=== PATIENT | female | born 1960 | race Caucasian/White ===

== ENCOUNTER → 2019-01-04 | Outpatient (CLI) | payer MEDICARE | LOC: COL.PUL 08:00 | DX: R06.02 Shortness of breath (principal) ==

== ENCOUNTER 2019-02-07 13:59 | Emergency (ER) | payer MEDICARE ==
[~2019-02-07] VITALS: Ht 170.2 cm; Wt 71.8 kg
[2019-02-07 14:03] VITALS: TEMP 98.5
[2019-02-07] MEDS ORDERED: ALDACTONE 25MG25 M1 PO (14:14)
[2019-02-07] MEDS ORDERED: 00186-0370-20 IH (14:14)
[2019-02-07] MEDS ORDERED: VENTOLIN0.09 MG IH (14:14)
[2019-02-07] MEDS ORDERED: SEROQUEL 1100 MG/TAB PO (14:14)
[2019-02-07] MEDS ORDERED: LIORESAL 1010 MG/TAB PO (14:15)
[2019-02-07] MEDS ORDERED: COREG12.5 MG PO (14:15)
[2019-02-07] MEDS ORDERED: LIPITOR20 MG PO (14:15)
[2019-02-07] MEDS ORDERED: DAZIDOX10 MG PO ×2 (14:15→15:55)
[2019-02-07] MEDS ORDERED: PRINIVIL20 MG PO (14:16)
[2019-02-07] MEDS ORDERED: CYMBALTA 60MG60 MG PO (14:16)
[2019-02-07] MEDS ORDERED: DESYREL 100MG100 MG PO (14:16)
[2019-02-07 16:00] VITALS: BP 176/102; PULSE 54
== END 2019-02-07 16:18 | disposition home or self-care (01) ==
LOC: COL.ER 13:59
DX: G89.29 Other chronic pain (principal); M54.5 Low back pain; I10 Essential (primary) hypertension; J44.9 Chronic obstructive pulmonary disease, unspecified; F17.210 Nicotine dependence, cigarettes, uncomplicated; Z79.51 Long term (current) use of inhaled steroids
CPT/HCPCS: J2270; J2360

== ENCOUNTER 2019-05-27 12:28 | Inpatient (IN) | payer MEDICARE ==
[~2019-05-27] VITALS: Ht 170.2 cm; Wt 68.3 kg
[~2019-05-27 12:28] MED LIST: 00186-0370-20 IH; ALDACTONE 25MG25 M1 PO; COREG12.5 MG PO; CYMBALTA 60MG60 MG PO; DAZIDOX10 MG PO; DESYREL 100MG100 MG PO; LIORESAL 1010 MG/TAB PO; LIPITOR20 MG PO; PRINIVIL20 MG PO; SEROQUEL 1100 MG/TAB PO; VENTOLIN0.09 MG IH
[2019-05-27] MEDS ORDERED: INCRUSE EL62.5 MCG/A IH (12:56)
[2019-05-27 13:27] LABS: BASO % 0.2 % (0.0-2.0); EOS # 0.1 (0.0-0.7); EOS % 0.9 % (0-4.0); GRAN # 6.1 (1.4-6.5); GRAN % 66.7 % (42.2-75.2); HEMOGLOBIN 13.7 g/dl (12.5-16.0); LYMPH % 21.5 % (20.0-51.0); MEAN CELL VOLUME 98 fl (80.0-100.0); MEAN CORPUSCULAR HEMOGLOBIN 34 pg (27.0-31.0); MEAN CORPUSCULAR HGB CONC 34 g/dl (33.0-37.0); MEAN PLATELET VOLUME 9.5 fl (7.4-10.4); MONO # 0.9 (0.1-0.6); MONO % 10.4 % (1.7-9.3); PLATELET COUNT 273 K/mm3 (130-400); RED BLOOD COUNT 4.08 M/mm3 (4.10-5.30); REDCELL DISTRIBUTION WIDTH-CV 11.9 % (11.5-14.5)
[2019-05-27 13:36] LABS: BILIRUBIN,TOTAL 0.6 mg/dL (0.0-1.0); CALCIUM 9.3 mg/dL (8.4-10.2); CREATININE, serum 0.94 (0.52-1.25); POTASSIUM 3.8 mmol/L (3.4-5.0); TOTAL PROTEIN 7.3 gm/dL (6.4-8.2)
[2019-05-27 13:53] LABS: TROPONIN-I 0.148 ng/mL (0.000-0.035)
[2019-05-27 18:23] VITALS: BP 144/78; PULSE 68; TEMP 97.5
--- NOTE | 2019-05-27 18:44 | NUR ---
PATIENT ORIENTED TO ROOM 351 SHE COMPLAINS OF PAIN PRN MEDICATION GIVEN
--- NOTE | 2019-05-27 19:45 | NUR ---
PATIENT RESTING IN BED WATCHING TELEVISION. SHE IS INFORMED THAT SHE IS NPO FOR THE HEART DOCTOR TO EVALUATE HER TOMORROW. SHE VERBALIZES UNDERSTANDING AND NO FURTHER QUESTIONS
[2019-05-27 20:06] VITALS: BP 115/74; PULSE 59; TEMP 97.6
--- NOTE | 2019-05-27 20:30 | NUR ---
Shift assessment complete. Pt resting in bed, awake, a&o, cooperative c cares. Pt reports continued chronic back pain rated "6/10" at this time; will given PRN pain med c HS meds per pt req. Reports SOB has improved since admit. Denies any other c/o. Tele in place. O2 per NC. INT patent. Pt denies further needs at this time. Call light in reach, will continue to monitor.
[2019-05-27 22:43] VITALS: BP 118/66; PULSE 65; TEMP 97.2
[2019-05-28 03:02] VITALS: BP 141/89; PULSE 62; TEMP 97.3
[2019-05-28 07:37] VITALS: BP 151/92; PULSE 68; TEMP 97.9
[2019-05-28 08:06] LABS: BASO % 0.2 % (0.0-2.0); GRAN # 5.2 (1.4-6.5); GRAN % 86.8 % (42.2-75.2); HEMATOCRIT 42.6 % (37.0-47.0); HEMOGLOBIN 14.6 g/dl (12.5-16.0); LYMPH # 0.6 (1.2-3.4); LYMPH % 10.2 % (20.0-51.0); MEAN CELL VOLUME 98 fl (80.0-100.0); MEAN CORPUSCULAR HEMOGLOBIN 34 pg (27.0-31.0); MEAN CORPUSCULAR HGB CONC 34 g/dl (33.0-37.0); MEAN PLATELET VOLUME 9.9 fl (7.4-10.4); MONO # 0.1 (0.1-0.6); MONO % 2.3 % (1.7-9.3); PLATELET COUNT 299 K/mm3 (130-400); RED BLOOD COUNT 4.33 M/mm3 (4.10-5.30); REDCELL DISTRIBUTION WIDTH-CV 11.8 % (11.5-14.5)
[2019-05-28 08:18] LABS: CALCIUM 9.9 mg/dL (8.4-10.2); CHOLESTEROL RISK RATIO 4.3; CREATININE, serum 0.95 (0.52-1.25)
[2019-05-28 09:19] LABS: TROPONIN-I 0.084 ng/mL (0.000-0.035)
--- NOTE | 2019-05-28 09:35 | NUR ---
DEZ met with the patient to discuss discharge plan. The patient lives in [place] with her significant other, Timur. She states that her daughter, Bia (ph#[phone]) and grandson are staying with them now. She reports independence with ADLs and has nocturnal oxygen from [facility]. The patient's PCP is Dr. Leona Jordan and she receives her medications at [facility]. She reports no difficulties obtaining her meds. The patient does not have advanced directives, but she was interested in obtaining a form for DPOA-HC. DEZ provided. She states that she would probably designate one of her three daughters. The patient plans to return home with her family upon discharge. No additional needs at this time.
[2019-05-28 12:37] VITALS: BP 145/75; PULSE 60; TEMP 97.3
--- NOTE | 2019-05-28 15:10 | NUR ---
sitting up in bed, states Dr was in and they are planning on her being discharged, she is alert and oriente, skin warm and dry, color normal, heart rate strong and regular, lungs CTA, bowel sounds present and abdoment soft, peripheral pulses present, denies needs
[2019-05-28] MEDS ORDERED: NICODERM C14 MG/PATC TD (15:32)
[2019-05-28] MEDS ORDERED: ASPIRIN E.C. 8181 MG PO (15:34)
--- NOTE | 2019-05-28 15:34 | NUR ---
cardiopulmonary notified of need for exercise oximetry
[2019-05-28] MEDS ORDERED: MEDROL 4MG DOSPA4 MG PO (15:35)
[2019-05-28] MEDS ORDERED: ZITHROMAX500 M2 PO (15:56)
[2019-05-28] MEDS ORDERED: PROCARDIA XL 3030 MG PO (15:57)
--- NOTE | 2019-05-28 15:59 | NUR ---
PT WALKED APPROX 100 FEET ON ROOM AIR. SPO2 @ REST 96% W/EXERCISE 93%
--- NOTE | 2019-05-28 16:23 | NUR ---
spoke with Dominguez Aguirre, she will review the exercises oximetry and complete discharge orders
--- NOTE | 2019-05-28 16:31 | NUR ---
INT and telemetry discontinued in anticipation of discharge, she will get up and get dressed now
--- NOTE | 2019-05-28 16:55 | NUR ---
discharge instructions given to patient and her daughter and verbalizes understanding, discharged ambulatory
== END 2019-05-28 16:55 | disposition home or self-care (01) | DRG 189 ==
LOC: COL.ER 12:28 → MEDICAL 15:09
PROVIDERS: Emergency Medicine; ADMIT Hospitalist
DX: J96.21 Acute and chronic respiratory failure with hypoxia (principal); I21.A1 Myocardial infarction type 2; J44.1 Chronic obstructive pulmonary disease with (acute) exacerbation; F32.9 Major depressive disorder, single episode, unspecified; I10 Essential (primary) hypertension; E78.5 Hyperlipidemia, unspecified; G89.29 Other chronic pain; F41.9 Anxiety disorder, unspecified; Z87.891 Personal history of nicotine dependence; Z90.710 Acquired absence of both cervix and uterus; Z79.891 Long term (current) use of opiate analgesic; Z86.73 Personal history of transient ischemic attack (TIA), and cerebral infarction without residual deficits
CPT/HCPCS: 99222-AI; 99232-AI; 99239; J1650; J2920; J2930

== ENCOUNTER 2021-01-28 11:02 | Emergency (ER) | payer MEDICARE, MEDICAID ==
[~2021-01-28] VITALS: Ht 162.6 cm; Wt 63.6 kg
[~2021-01-28 11:02] MED LIST changes: +ASPIRIN E.C. 8181 MG PO; +INCRUSE EL62.5 MCG/A IH; +MEDROL 4MG DOSPA4 MG PO; +NICODERM C14 MG/PATC TD; +PROCARDIA XL 3030 MG PO; +ZITHROMAX500 M2 PO
[2021-01-28 11:10] VITALS: TEMP 97.6
[2021-01-28 11:20] LABS: BASO % 0.2 % (0.0-2.0); EOS # 0.1 (0.0-0.7); EOS % 0.9 % (0-4.0); GRAN # 6.7 (1.4-6.5); GRAN % 79.1 % (42.2-75.2); HEMATOCRIT 43.2 % (37.0-47.0); HEMOGLOBIN 15.2 g/dl (12.5-16.0); LYMPH % 11.6 % (20.0-51.0); MEAN CELL VOLUME 103 fl (80.0-100.0); MEAN CORPUSCULAR HEMOGLOBIN 36 pg (27.0-31.0); MEAN CORPUSCULAR HGB CONC 35 g/dl (33.0-37.0); MEAN PLATELET VOLUME 8.9 fl (7.4-10.4); MONO # 0.7 (0.1-0.6); MONO % 7.6 % (1.7-9.3); PLATELET COUNT 226 K/mm3 (130-400); RED BLOOD COUNT 4.19 M/mm3 (4.10-5.30); REDCELL DISTRIBUTION WIDTH-CV 13.1 % (11.5-14.5)
[2021-01-28 11:43] LABS: ALCOHOL(ethanol),MEDICAL < 10 mg/dL
[2021-01-28 12:15] LABS: PH 6 (5-8); SQUAMOUS EPITHELIAL 0-2 /hpf; URINE APPEARANCE Clear; URINE BACTERIA None Seen /hpf; URINE BILIRUBIN Negative (NEGATIVE); URINE BLOOD 1+ (NEGATIVE); URINE COLOR Yellow; URINE GLUCOSE Negative (NEGATIVE); URINE KETONE Negative (NEGATIVE); URINE LEUKOCYTE ESTERASE Negative (NEGATIVE); URINE NITRATE Negative (NEGATIVE); URINE PROTEIN(semi-quant) Negative (NEGATIVE); URINE UROBILINOGEN Negative (NEGATIVE)
[2021-01-28 12:22] LABS: TRICYCLIC ANTIDEPRESS URINE POSITIVE
[2021-01-28 12:26] LABS: ALBUMIN 4.6 gm/dL (3.5-5.0); BLOOD UREA NITROGEN 18 mg/dL (7-17); CALCIUM 9.1 mg/dL (8.4-10.2); CARBON DIOXIDE 26 mmol/L (22-30); CHLORIDE 104 mmol/L (98-107); CREATININE, serum 0.95 (0.52-1.25); GLUCOSE 117 mg/dL (74-106); POTASSIUM 3.8 mmol/L (3.4-5.0); SODIUM 137 mmol/L (137-145)
[2021-01-28 12:27] LABS: ALANINE AMINOTRANSFERASE 30 U/L (4-34); ALKALINE PHOSPHATASE 75 U/L (50-136); AST,SGOT 31 U/L (15-37); BILIRUBIN,TOTAL 0.3 mg/dL (0.0-1.0); TROPONIN-I < 0.012 ng/mL (0.000-0.035)
[2021-01-28 12:29] LABS: ANION GAP 7 mmol/L (7-16)
[2021-01-28 12:33] LABS: COLLECTION METHOD IN
[2021-01-28 13:41] LABS: PROTHROMBIN TIME 10.7 SECONDS (9.7-12.8)
[2021-01-28 13:44] LABS: PARTIAL THROMBOPLASTIN TIME 28.5 SECONDS (26.0-37.0)
[2021-01-28 16:15] VITALS: BP 114/87; PULSE 113
== END 2021-01-28 16:15 | disposition short-term general hospital (02) ==
LOC: COL.ER 11:02
PROVIDERS: Student in an Organized Health Care Education/Training Program
DX: I63.9 Cerebral infarction, unspecified (principal); G93.9 Disorder of brain, unspecified; R56.9 Unspecified convulsions; R41.82 Altered mental status, unspecified; I10 Essential (primary) hypertension; Z20.822 Contact with and (suspected) exposure to COVID-19; Z79.899 Other long term (current) drug therapy
CPT/HCPCS: J1100; J1953; Q9967

== ENCOUNTER 2021-07-03 10:30 | Outpatient (RCR) | payer MEDICARE, MEDICAID | END 2021-07-06 10:21 | disposition home or self-care (01) | LOC: WSPT 10:30 | DX: R26.89 Other abnormalities of gait and mobility (principal) ==

== ENCOUNTER 2021-07-23 11:41 | Inpatient (IN) | payer MEDICARE, MEDICAID ==
[~2021-07-23] VITALS: Ht 165.1 cm; Wt 49.7 kg
[2021-07-23 13:01] LABS: HEMATOCRIT 42.7 % (37.0-47.0); HEMOGLOBIN 15.2 g/dl (12.5-16.0); MEAN CELL VOLUME 101 fl (80.0-100.0); MEAN CORPUSCULAR HEMOGLOBIN 36 pg (27-31); MEAN CORPUSCULAR HGB CONC 36 g/dl (33.0-37.0); MEAN PLATELET VOLUME 10.1 fl (7.4-10.4); PLATELET COUNT 193 K/mm3 (130-400); RED BLOOD COUNT 4.23 M/mm3 (4.10-5.30); REDCELL DISTRIBUTION WIDTH-CV 13.7 % (11.5-14.5)
[2021-07-23 13:16] LABS: ALBUMIN 3.3 gm/dL (3.5-5.0); BILIRUBIN,TOTAL 1.3 mg/dL (0.2-1.2); CALCIUM 9.7 mg/dL (8.4-10.2); POTASSIUM 3.8 mmol/L (3.5-4.5)
[2021-07-23 14:10] LABS: BAND 11 % (0-10); LYMPHOCYTE 3 % (20.0-51.0); NEUTROPHILS 78 % (42.0-75.2)
[2021-07-23 14:13] LABS: PLATELET ESTIMATE NORMAL (NORMAL)
[2021-07-23] MEDS ORDERED: ZYPREXA 5MG5 MG PO (15:11)
[2021-07-23] MEDS ORDERED: ADALAT CC30 MG PO (15:12)
[2021-07-23] MEDS ORDERED: KEPPRA 500MG500 MG PO (15:12)
--- NOTE | 2021-07-23 15:45 | NUR ---
Patient to room 357 from the ED. Patient A&Ox3. 3L NC O2, no reported SOB. IV CDI, fluids infusing. Reports pain with movement. Nurse oriented the patient to location, call light and room. Call light within reach. Bed alarm on
--- NOTE | 2021-07-23 17:27 | NUR ---
Patient resting in bed after returning from CT. Nurse educated patient on how to order food. IV CDI, fluids infusing. No further needs expressed. Call light within reach. Bed alarm on
[2021-07-23 17:30] VITALS: BP 107/64; PULSE 100; TEMP 98.5
[2021-07-23 20:24] VITALS: BP 112/64; PULSE 103; TEMP 98
--- NOTE | 2021-07-23 21:32 | NUR ---
ALERT AND OX4. DENIES SOA EXCEPT WHEN UP AMB TO BR,COMMODE USED. RATING BACK PAIN 01/06. PM MEDS GIVEN ALONG W PAIN MED. PT DAUGHTER UPDATED AFTER CALLING. POC DISCUSSED. NEEDS MET.
[2021-07-23 23:31] VITALS: BP 108/63; PULSE 86; TEMP 97.9
[2021-07-24 03:23] VITALS: BP 121/67; PULSE 86; TEMP 97.6
[2021-07-24 07:03] LABS: HEMATOCRIT 38.4 % (37.0-47.0); MEAN CELL VOLUME 104 fl (80.0-100.0); MEAN CORPUSCULAR HEMOGLOBIN 36 pg (27-31); MEAN CORPUSCULAR HGB CONC 34 g/dl (33.0-37.0); MEAN PLATELET VOLUME 10.3 fl (7.4-10.4); PLATELET COUNT 173 K/mm3 (130-400); REDCELL DISTRIBUTION WIDTH-CV 13.9 % (11.5-14.5)
[2021-07-24 07:23] LABS: CALCIUM 9.5 mg/dL (8.4-10.2); CREATININE, serum 0.81 mg/dL (0.57-1.11); POTASSIUM 3.5 mmol/L (3.5-4.5)
[2021-07-24 07:34] LABS: HEMOGLOBIN 13.2 g/dl (12.5-16.0)
[2021-07-24 08:05] VITALS: BP 106/64; PULSE 98; TEMP 98.3
[2021-07-24 08:33] LABS: BAND 13 % (0-10); LYMPHOCYTE 3 % (20.0-51.0); NEUTROPHILS 82 % (42.0-75.2); PLATELET ESTIMATE NORMAL (NORMAL)
--- NOTE | 2021-07-24 09:00 | NUR ---
PT PLEASANT, AOX4, REPORTS PAIN 3/10 IN BACK, PT REPORTS AMBULATING IN THE ROOM WITH HER CANE, PT WAINWRIGHT BILATERALLY, BP SOFT, DAMARI MORATAYA NOTIFIED AND CERTAIN MEDS PLACED ON HOLD, PT ASSESSMENT PERFORMED, BUE ECCHYMOSIS PRESENT, NO OTHER NEEDS
--- NOTE | 2021-07-24 09:55 | NUR ---
DAMARI MORATAYA GAVE VERBAL ORDER TO GIVE ALDACTONE BUT CONTINUE TO HOLD NIFEDIPINE.
[2021-07-24 11:15] VITALS: BP 120/75; PULSE 91; TEMP 98.2
--- NOTE | 2021-07-24 12:00 | NUR ---
ENTERED PT ROOM, PT PUTTING PILL BOTTLE INTO PURSE, ASKED PT WHAT THE BOTTLE OF PILLS WAS, PT REPLIED WITH "OXYCODONE, IM NOT TAKING IT I JUST WAS TRYING TO FIGURE OUT WHERE TO PUT IT FOR WHEN MY SON SHOWS UP, IM WORRIED HE MIGHT TAKE IT ", EDUCATED PT WE NEED TO KEEP ALL HOME MEDS IN THE PHARMACY, PT AGREEABLE TO THIS, 45 TABS COUNTED WITH CHRISTOPH OJEDA. PHARMACY CALLED TO SALES REPRESENTATIVE MEATS MEDICATION.
--- NOTE | 2021-07-24 13:32 | NUR ---
SW met with the patient to discuss discharge plan. The patient lives alone in [place]. She states that her daughter, Arely Carter (ph#[phone]), stays over during the day and that they have cameras in her house, so that Arley can monitor her over night and on the weekends. She reports independence with ADLs and has a cane and nocturnal oxygen from [facility]. She states that she only has a concentrator at home. The patient's PCP is Dr. Leona Jordan and [facility] [place] [facility] She reports no difficulties obtaining her meds. The patient does not have a DPOA-HC in EMR, but she states that she has the form at home and already filled out. She states that she plans on taking the completed form to her PCP's office, where they have a notary. She states that she is designating her daughter, Arely, and then her son, Miguelangel, as the alternate. The patient is and has five children: Arely, Miguelangel, Bia, Oliver, and Blaze. The patient plans on returning home upon discharge. The patient is currently on 1.5 liters of oxygen. SW to continue to monitor. The patient may need continuous oxygen upon discharge. *Discharge plan: home*
[2021-07-24 17:16] VITALS: BP 135/85; PULSE 80; TEMP 97.4
--- NOTE | 2021-07-24 17:23 | NUR ---
PT SARAH BETH, AOX4, REPORTS CHRONIC PAIN IN HER LOWER BACK, PT OXYCODONE SENT TO PHARMACY, PT HAD NAP DURING THE DAY, NO OTHER NEEDS
[2021-07-24 19:58] VITALS: BP 134/85; PULSE 83; TEMP 98
--- NOTE | 2021-07-24 20:00 | NUR ---
Bedside shift report received, assumed care for cnc machinist 2nd shift. Assessment complete. A&Ox3. Denies nausea/shortness of breath/pain. VS stable. Tele reporting SR. O2@2L/NC with adequate saturation. RIght AC INT flushes without difficulty. Plan of care discussed for this shift to include meds/TELE/calling for questions/concerns. Verbalizes understanding/denies needs. Call light in reach. Will monitor.
[2021-07-24 23:54] VITALS: BP 129/74; PULSE 80; TEMP 97.5
[2021-07-25 03:31] VITALS: BP 127/83; PULSE 88; TEMP 97.6
--- NOTE | 2021-07-25 03:39 | NUR ---
PCT reports O2 saturation of 90%. Patient has removed oxygen again. Reapplied at this time 2L/NC. O2 saturation 95%
--- NOTE | 2021-07-25 04:06 | NUR ---
Called with c/o back pain-rating pain 8/10 on pain scale-described as sharp. Oxycodone given per dr schneider.
--- NOTE | 2021-07-25 05:43 | NUR ---
Patient had an uneventful night. Received oxycodone x1 for back pain. O2@2L/NC. TELE reporting SR. Right AC INT flushes without difficulty. Denied nausea. NC WNL. Denies current needs. Call light in reach. Will monitor.
[2021-07-25 07:29] VITALS: BP 171/91; PULSE 83; TEMP 97.8
--- NOTE | 2021-07-25 08:40 | NUR ---
PT PLEASANT, AOX4, COARSE LUNG SOUNDS AUSCULTATED IN THE BASES, PT DENIES PAIN, IV SITE WRAPPED WITH COBAN AT THIS TIME, INT FLUSHED AND SOLUMEDROL GIVEN, PT THEN REPORTED FEELING MOISTURE AT IV SITE, REMOVED COBAN TO VISUALIZE SITE AND IT APPEARED TO BE LEAKING, ATTEMPTED TO REMOVE TAPE AND IV WAS REMOVED IN THE PROCESS, UNSURE TO HOW MUCH SOLUMEDROL PT RECIEVED DURING ADMINISTRATION. ATTEMPTED NEW IV X3 W/O SUCCESS. JOEL HAWTHORNE PLACED INT TO LFA 22G. PT REPORTS BACK PAIN 3/10, MEDICATIONS GIVEN NO OTHER NEEDS
[2021-07-25] MEDS ORDERED: OMNICEF 300MG300 MG PO (09:34)
[2021-07-25] MEDS ORDERED: DOXYCYCLINE 10100 MG PO (09:35)
[2021-07-25] MEDS ORDERED: PREDNISONE20 MG PO (09:39)
--- NOTE | 2021-07-25 10:26 | NUR ---
pt does not require oxygen with ambulation
[2021-07-25 11:32] VITALS: BP 135/86; PULSE 87; TEMP 97.4
--- NOTE | 2021-07-25 11:37 | NUR ---
DISCHARGE EDUCATION PROVIDED, IV REMOVED, TELE REMOVED, EDUCATED ON NEW MEDICATIONS AND SIDE EFFECTS, NO OTHER NEEDS
--- NOTE | 2021-07-25 12:28 | NUR ---
PT ESCORTED OUT VIA WHEELCHAIR WITH PT BELONGINGS, PT PERSONAL OXYCODONE DELIVERED BY [facility] FROM PHARMACY. NO OTHER NEEDS
== END 2021-07-25 12:28 | disposition home or self-care (01) | DRG 193 ==
LOC: COL.ER 11:41 → MEDICAL 13:33
PROVIDERS: Personal Emergency Response Attendant; Physician Assistant; ADMIT Internal Medicine
DX: J18.9 Pneumonia, unspecified organism (principal); J96.21 Acute and chronic respiratory failure with hypoxia; J44.0 Chronic obstructive pulmonary disease with (acute) lower respiratory infection; J44.1 Chronic obstructive pulmonary disease with (acute) exacerbation; C79.31 Secondary malignant neoplasm of brain; C34.90 Malignant neoplasm of unspecified part of unspecified bronchus or lung; E44.0 Moderate protein-calorie malnutrition; C79.51 Secondary malignant neoplasm of bone; Z68.1 Body mass index [BMI] 19.9 or less, adult; I10 Essential (primary) hypertension; F17.210 Nicotine dependence, cigarettes, uncomplicated; E78.5 Hyperlipidemia, unspecified; G89.29 Other chronic pain; M54.50 Low back pain, unspecified; F41.9 Anxiety disorder, unspecified; F32.A Depression, unspecified; Z99.81 Dependence on supplemental oxygen; Z86.73 Personal history of transient ischemic attack (TIA), and cerebral infarction without residual deficits; Z87.442 Personal history of urinary calculi; Z79.82 Long term (current) use of aspirin; Z20.822 Contact with and (suspected) exposure to COVID-19
CPT/HCPCS: 99223-AI; 99233-AI; 99239; A9284; J0696; J1650; J1956; J2920; J2930; J7030; Q9967

== ENCOUNTER → 2021-07-28 | Outpatient (CLI) | payer MEDICARE, MEDICAID ==
[~2021-07-28] MED LIST changes: +ADALAT CC30 MG PO; +DOXYCYCLINE 10100 MG PO; +KEPPRA 500MG500 MG PO; +OMNICEF 300MG300 MG PO; +PREDNISONE20 MG PO; +ZYPREXA 5MG5 MG PO
== END ==
LOC: COL.VAS 07-16 14:45
DX: I27.20 Pulmonary hypertension, unspecified (principal); J91.8 Pleural effusion in other conditions classified elsewhere

== ENCOUNTER → 2021-08-11 | Outpatient (CLI) | payer MEDICARE, MEDICAID | LOC: COL.RAD 08:31 | DX: M47.816 Spondylosis without myelopathy or radiculopathy, lumbar region (principal); C34.01 Malignant neoplasm of right main bronchus; M89.9 Disorder of bone, unspecified | CPT/HCPCS: A9503 ==

== ENCOUNTER 2021-11-02 13:11 | Emergency (ER) | payer MEDICARE, MEDICAID ==
[~2021-11-02] VITALS: Ht 165.1 cm; Wt 44.5 kg
[2021-11-02 13:58] LABS: HEMATOCRIT 50.3 % (37.0-47.0); HEMOGLOBIN 17.1 g/dl (12.5-16.0); MEAN CELL VOLUME 100 fl (80.0-100.0); MEAN CORPUSCULAR HEMOGLOBIN 34 pg (27-31); MEAN CORPUSCULAR HGB CONC 34 g/dl (33.0-37.0); PLATELET COUNT 197 K/mm3 (130-400); RED BLOOD COUNT 5.01 M/mm3 (4.10-5.30); REDCELL DISTRIBUTION WIDTH-CV 13.2 % (11.5-14.5)
[2021-11-02 14:08] LABS: PARTIAL THROMBOPLASTIN TIME 33.9 SECONDS (26.0-37.0)
[2021-11-02 14:16] LABS: BAND 8 % (0-10); LYMPHOCYTE 3 % (20.0-51.0); NEUTROPHILS 78 % (42.0-75.2); PLATELET ESTIMATE NORMAL (NORMAL)
[2021-11-02 14:23] LABS: ALBUMIN 3.4 gm/dL (3.5-5.0); BILIRUBIN,TOTAL 1.1 mg/dL (0.2-1.2); CALCIUM 10.2 mg/dL (8.4-10.2); CREATININE, serum 1.04 mg/dL (0.57-1.11); POTASSIUM 3.6 mmol/L (3.5-4.5); TOTAL PROTEIN 7.5 gm/dL (6.2-8.1); TROPONIN-I 0.014 ng/mL (0.00-0.033)
[2021-11-02] MEDS ORDERED: PACERONE400 MG PO (15:50)
[2021-11-02] MEDS ORDERED: ELIQUIS 5MG PO (15:50)
--- NOTE | 2021-11-02 16:23 | NUR ---
SW received consult on patient that she was needing continuous oxygen. SW contacted [facility] to confirm that the patient is established with them and she is on nocturnal o2. Per Loraine at [facility], [facility] will not pay for oxygen that is ordered out of the ER. The order has to come from either the patient being admitted as an inpatient or the patient's PCP. Information is provided to the patient's RN and ER physician. Agreement made to provide the patient treatments that will stablize her to get home where she has tanks and in the morning follow up with her PCP.
[2021-11-02 16:46] VITALS: BP 123/84; PULSE 96
[2021-11-02] MEDS ORDERED: PREDNISONE50 MG PO (17:03)
[2021-11-02] MEDS ORDERED: DOXYCYCLINE 10100 MG PO (17:03)
== END 2021-11-02 17:14 | disposition home or self-care (01) ==
LOC: COL.ER 13:11
PROVIDERS: Family Medicine
DX: I48.20 Chronic atrial fibrillation, unspecified (principal); C34.90 Malignant neoplasm of unspecified part of unspecified bronchus or lung; J44.1 Chronic obstructive pulmonary disease with (acute) exacerbation; Z87.891 Personal history of nicotine dependence; Z99.81 Dependence on supplemental oxygen; Z28.310 Unvaccinated for COVID-19
CPT/HCPCS: J1644; J7120; J7512

== ENCOUNTER 2021-11-03 22:50 | Inpatient (IN) | payer MEDICARE, MEDICAID ==
[~2021-11-03] VITALS: Ht 165.1 cm; Wt 44.5 kg
[~2021-11-03 22:50] MED LIST changes: +ELIQUIS 5MG PO; +PACERONE400 MG PO; +PREDNISONE50 MG PO
[2021-11-03 23:31] LABS: HEMATOCRIT 44.3 % (37.0-47.0); HEMOGLOBIN 15.7 g/dl (12.5-16.0); MEAN CELL VOLUME 98 fl (80.0-100.0); MEAN CORPUSCULAR HEMOGLOBIN 35 pg (27-31); MEAN CORPUSCULAR HGB CONC 35 g/dl (33.0-37.0); MEAN PLATELET VOLUME 10.5 fl (7.4-10.4); PLATELET COUNT 201 K/mm3 (130-400); RED BLOOD COUNT 4.54 M/mm3 (4.10-5.30); REDCELL DISTRIBUTION WIDTH-CV 13.2 % (11.5-14.5)
[2021-11-03 23:41] LABS: INR 1.8 (0.8-3.0); PROTHROMBIN TIME 21.2 SECONDS (9.7-12.8)
[2021-11-03 23:48] LABS: ALBUMIN 2.9 gm/dL (3.5-5.0); BILIRUBIN,TOTAL 1.1 mg/dL (0.2-1.2); C-REACTIVE PROTEIN 28.51 mg/dL (0.00-0.50); CALCIUM 10.1 mg/dL (8.4-10.2); CREATININE, serum 1.33 mg/dL (0.57-1.11); POTASSIUM 4.1 mmol/L (3.5-4.5)
[2021-11-03 23:53] LABS: TROPONIN-I 0.013 ng/mL (0.00-0.033)
[2021-11-04 00:09] LABS: BAND 15 % (0-10); LYMPHOCYTE 2 % (20.0-51.0); NEUTROPHILS 75 % (42.0-75.2); PLATELET ESTIMATE NORMAL (NORMAL)
[2021-11-04 00:09] LABS: COLLECTION METHOD CLEAN CATCH
[2021-11-04 00:28] LABS: AMORPHOUS CRYSTAL Present (NOT PRESENT); MUCOUS Present (NOT PRESENT); PH 5 (5-8); URINE APPEARANCE Cloudy (CLEAR/HAZY); URINE BACTERIA Rare /hpf (NONE SEEN); URINE BILIRUBIN Negative (NEGATIVE); URINE BLOOD 1+ (NEGATIVE); URINE COLOR Amber (YELLOW); URINE GLUCOSE 1+ (NEGATIVE); URINE KETONE Negative (NEGATIVE); URINE LEUKOCYTE ESTERASE Negative (NEGATIVE); URINE NITRATE Negative (NEGATIVE); URINE PROTEIN(semi-quant) 2+ (NEGATIVE)
[2021-11-04] MEDS ORDERED: ZYPREXA 5MG5 MG PO (01:06)
[2021-11-04] MEDS ORDERED: 00186-0370-20 IH (01:43)
[2021-11-04] MEDS ORDERED: PREDNISONE20 MG PO (02:58)
--- NOTE | 2021-11-04 03:17 | NUR ---
PT ADMIT FROM ER PER CART. VERY FRAILE, PALE WITH MULTIPLE BRUSING. SKIN TEAR TO LEFT LEGER. HAD C/O FEELING SOA FOR LAST WEEK. WAS JUST SEEN IN ER FOR NEW ONSET OF AFIB TUESDAY AND SENT HOME. ALERT AND OX4 WI SOME CONFUSION. 4 LITERS AT BASE 20/12. BILATERAL PNA, COPD EX. LUNGS WHEEZY AND COURSE. DAUGHTER KEVON CALLED AND UPDATED. PT RATING PAIN 9/10, OXYCODONE RESTARTED. MED REC COMPLETE. ROOM ORIENTATION. PURE WICK PLACED PT IS VERY WEAK AND SOA W AMBUATION.
[2021-11-04 04:32] VITALS: BP 119/76; PULSE 95; TEMP 97.8
[2021-11-04 05:49] LABS: ARTERIAL BLD GAS O2 SATURATION 93.1 % (92-100); ARTERIAL BLD GAS TCO2 CT 28.7; ARTERIAL BLOOD GAS BASE EXCESS 3.8 (-2-2); ARTERIAL BLOOD GAS HCO3 27.5 meq/L (22-26); ARTERIAL BLOOD GAS PCO2 38.5 mmHg (35-45); ARTERIAL BLOOD GAS PO2 68.5 mmHg (80-100); ARTERIAL BLOOD GAS pH 7.47 (7.35-7.45)
[2021-11-04 06:39] LABS: HEMATOCRIT 40.6 % (37.0-47.0); HEMOGLOBIN 14.3 g/dl (12.5-16.0); MEAN CELL VOLUME 100 fl (80.0-100.0); MEAN CORPUSCULAR HEMOGLOBIN 35 pg (27-31); MEAN CORPUSCULAR HGB CONC 35 g/dl (33.0-37.0); MEAN PLATELET VOLUME 10.2 fl (7.4-10.4); PLATELET COUNT 174 K/mm3 (130-400); RED BLOOD COUNT 4.06 M/mm3 (4.10-5.30); REDCELL DISTRIBUTION WIDTH-CV 13.2 % (11.5-14.5)
[2021-11-04 07:13] LABS: CALCIUM 9.5 mg/dL (8.4-10.2); CREATININE, serum 0.88 mg/dL (0.57-1.11); POTASSIUM 3.5 mmol/L (3.5-4.5)
[2021-11-04 07:36] LABS: BAND 6 % (0-10); LYMPHOCYTE 5 % (20.0-51.0); NEUTROPHILS 81 % (42.0-75.2)
[2021-11-04 07:37] LABS: PLATELET ESTIMATE NORMAL (NORMAL)
[2021-11-04 07:44] VITALS: BP 126/77; PULSE 100; TEMP 97.8
--- NOTE | 2021-11-04 10:49 | NUR ---
Patient has pressure ulcers present on her coccyx, states she has been bed ridden for a few weeks now as everytime she tries to get up she gets too SOB. Patient is A&Ox4 and uses her call light anytime needs arise. Patient does have chronic pain and has gotten one dose of oxycodone so far this shift. Palliative care consult to be done today.
[2021-11-04] MEDS ORDERED: FENTANYL 50MCG TD (10:51)
[2021-11-04 11:28] VITALS: BP 106/65; PULSE 97; TEMP 97.9
--- NOTE | 2021-11-04 12:17 | NUR ---
Attended rounds then met with patient and DEZ Wadsworth. Patient states she has some experience with hospice but wants to live. The children she lives with work so are unable to provide 24/7 care to her. Chema was under the impression that no cancer was seen on her PET scan so that is why she is no longer receiving any treatment. She states she would be interested in hospice if she has no treatment options for the new lesion found in her back but would like to talk with Dr. Gaytan about that. She sees Dr. Gaytan regularly for weight checks as it is. Chema also designated her daughter Arely Rodriguez as DPOA-HC with DEZ Wadsworth and I as witnesses. See DEZ goodwin for discharge planning at this time.
--- NOTE | 2021-11-04 12:36 | NUR ---
Fentanyl patch applied to patient's left should blade, initials, date, and time on patch (, 11/04, 1230).
--- NOTE | 2021-11-04 15:55 | NUR ---
Parts Fabricator and Palliative RN met with patient to discuss goals of care and discharge planning. Patient states that she wants to live and is established with Dr. Gaytan, Oncologist. Patient lives in [place] with her two children but report that they work during the day. Patient sees Dr. Leona Jordan for primary care. Patient is interested in completing DPOA-HC form. SW assisted patient in completing form and she chose to designate her daughter, Arely (ph#[phone]). Patient did not want to designate an alternate agent at this time. DEZ and CHRISTOPH Waterman provided witness signature. SW provided original and copies to patient, then placed copy in patient's chart. SW discussed PT/OT recommendation for SNF and patient is open to this. Patient would like referrals sent to the three local facilities. SW contacted [facility], and [facility] then faxed referral. SW and Palliative RN attempted to contact patient's daughter and left a message. Palliative RN also left message for Dr. Gaytan's office to seek clarification on any available treatment options. Discharge Plan: SNF referrals pending
[2021-11-04 16:13] VITALS: BP 111/62; PULSE 99; TEMP 97.3
--- NOTE | 2021-11-04 17:40 | NUR ---
Patient given another PRN dose of oxycodone and is currently sleeping. Patient repositioning herself frequetly in bed.
[2021-11-04 20:44] VITALS: BP 103/69; PULSE 87; TEMP 97.7
--- NOTE | 2021-11-04 21:45 | NUR ---
Pt alert and oriented this evening, quite drowsy, but alert to voice. Follows commands and responds. Does not appear to be short of breath. Respirations are 16-18 and shallow. Pt denies chest pain or feeling SOB. Pt reported pain after being turned. Prn pain medication administered per orders. Shift assessment performed. Medications administered per orders and education provided. VS stable. Afebrile. Pt satting WNL on 4L NC. Pt tolerated PO medications well with water. Pt did not eat much of her dinner, encouraged nutrition but pt refused. Skin is dry and warm. Noted 2 small stage 2 wounds on the pt's left buttock. Wounds are slightly smaller than dime-sized. No drainage noted. Currently covered with an allevein dressing. Continuing to turn the pt every 2 hours and providing incontinent care as needed. Purewick in place. Pt has had 1 incontinent void this evening. NS currently running at 75 ml/hr. No BLE edema noted. Lungs sounds diminished. Pt is currently resting quietly, does not report any questions. Will continue to monitor.
[2021-11-04 23:39] VITALS: BP 92/43; BP 95/50; PULSE 65; TEMP 97.8
[2021-11-05] VITALS (7 sets, daily range): BP systolic 105–126; BP diastolic 59–81; PULSE 86–106; TEMP 97.6–98.3
--- NOTE | 2021-11-05 04:45 | NUR ---
No adverse events overnight. Pt remains alert and oriented to speech, but is still drowsy. Follows commands. Denies pain currently. Resting quietly in room. VS remain stable. Heart rythym is NSR. Satting WNL on 4L NC. Continued with IV fluids and IV antibx overnight. Prn pain medication administered x1. Adequate urine output. Continued to turn pt every 2 hours and provide incontinent care. Tolerating PO. No BM's overnight. Pt does not report any questions, will continue to monitor.
[2021-11-05 06:12] LABS: MEAN CELL VOLUME 102 fl (80.0-100.0); MEAN CORPUSCULAR HGB CONC 34 g/dl (33.0-37.0); MEAN PLATELET VOLUME 9.8 fl (7.4-10.4); PLATELET COUNT 151 K/mm3 (130-400); RED BLOOD COUNT 3.53 M/mm3 (4.10-5.30); REDCELL DISTRIBUTION WIDTH-CV 13.5 % (11.5-14.5)
[2021-11-05 06:13] LABS: HEMATOCRIT 35.9 % (37.0-47.0); HEMOGLOBIN 12.1 g/dl (12.5-16.0); MEAN CORPUSCULAR HEMOGLOBIN 34 pg (27-31)
[2021-11-05 06:24] LABS: CALCIUM 9.1 mg/dL (8.4-10.2); CREATININE, serum 0.65 mg/dL (0.57-1.11); POTASSIUM 3.3 mmol/L (3.5-4.5)
[2021-11-05 07:11] LABS: BAND 3 % (0-10); LYMPHOCYTE 6 % (20.0-51.0); NEUTROPHILS 81 % (42.0-75.2)
[2021-11-05 07:12] LABS: PLATELET ESTIMATE NORMAL (NORMAL); SCHISTOCYTES 1+
--- NOTE | 2021-11-05 09:47 | NUR ---
PT RESTING IN BED. MORNING MEDICATIONS GIVEN. SHIFT ASSESSMENT COMPLETED. PT COMPLAINING OF BACK PAIN AT THIS TIME. CURRENTLY ON 4L VIA NC. IVF INFUSING. THIS RN ENCOURAGED PT TO TRY EATING SOMETHING THIS AM. WILL CONTINUE TO MONITOR.
--- NOTE | 2021-11-05 12:58 | NUR ---
Palliative Care; Patient opened eyes periodically though didn't respond when Garment Form Assembler offered a prayer. Garment Form Assembler will keep Chema in her prayers.
--- NOTE | 2021-11-05 14:43 | NUR ---
Call made to patients daughter Arely with SW to give her update and discuss current discharge plan. Arely states that they were under the impression that the abnormal imaging of Chema's back was degenerative/arthiritic changes and not cancer. I told her that I would get clarification from Dr. Gaytan and get back to her. Arely also requested we do a conference call with her and her other siblings to notify them of the recommendation for SNF. Conference call held at 1200; 4/5 of patient's children were on the phone. They are all in agreeance that knowing if they should be concerned about the patient's back is primary concern and that they support a SNF stay if the patient agrees. Provided my contact information if more questions arise. Requested most recent progress not from Dr. Gaytan around 0900 this AM-none received at this time.
--- NOTE | 2021-11-05 15:17 | NUR ---
Replanting Machine Crew and Palliative RN had a conference with 4 of the 5 of patient's children including Arely NELSON. Patient's children are supportive of a SNF stay if patient is agreeable to it. Patient's children have clinical questions about patient's diagnosis and treatment plan. [facility] Palliative RN advised that the team is working to collaborate with Dr. Gaytan's office to determine if patient is a candidate for treatment and what the plan for that would be. DEZ contacted Dr. Gaytan's office and left a message for RN. [facility] Palliative RN has also spoke with RN requesting more information. DEZ faxed clinical updates to [facility], [facility], and [facility]. Dalia at [facility] did not think they would have SNF availability at this time. Discharge Plan: SNF referrals pending
--- NOTE | 2021-11-05 20:00 | NUR ---
Patient is sleeping in bed, easily arousable. VSS, Telemetry in place, tachycardic 100-110. Asked for pain medication. PRN provided. 4L O2 NC. Receiving NS 75ML/HR. Assessment completed, hygiene provided, since incontinent, linens and gown changed. No other needs at this time. Call light within reach.
[2021-11-06 04:17] VITALS: BP 139/89; PULSE 92; TEMP 97.9
--- NOTE | 2021-11-06 06:06 | NUR ---
Patient has had a calm night. Continues weak and drowsy. Telemetry in place HR 90-110. 4L O2 NC. Receiving NS 75ML/HR. Did not take all doses of potassium replacement. Report will be given to day RN.
[2021-11-06 06:31] LABS: BASO % 0.2 % (0.0-2.0); EOS % 0.2 % (0.0-4.0); GRAN # 3.5 K/mm3 (1.4-6.5); GRAN % 81.9 % (42.2-75.2); HEMATOCRIT 38.6 % (37.0-47.0); HEMOGLOBIN 12.8 g/dl (12.5-16.0); LYMPH # 0.4 K/mm3 (1.2-3.4); LYMPH % 9.2 % (20.0-51.0); MEAN CELL VOLUME 103 fl (80.0-100.0); MEAN CORPUSCULAR HEMOGLOBIN 34 pg (27-31); MEAN CORPUSCULAR HGB CONC 33 g/dl (33.0-37.0); MEAN PLATELET VOLUME 9.6 fl (7.4-10.4); MONO # 0.3 K/mm3 (0.1-0.6); MONO % 7.3 % (1.7-9.3); PLATELET COUNT 162 K/mm3 (130-400); RED BLOOD COUNT 3.76 M/mm3 (4.10-5.30); REDCELL DISTRIBUTION WIDTH-CV 13.4 % (11.5-14.5)
[2021-11-06 06:53] LABS: CALCIUM 9.1 mg/dL (8.4-10.2); CREATININE, serum 0.63 mg/dL (0.57-1.11); POTASSIUM 3.8 mmol/L (3.5-4.5)
[2021-11-06 07:40] VITALS: BP 142/92; PULSE 99; TEMP 97.6
[2021-11-06 11:17] VITALS: BP 137/81; PULSE 97; TEMP 97.5
--- NOTE | 2021-11-06 13:44 | NUR ---
Violin Maker Hand faxed clinical updates to [facility]. SW contacted [facility] and spoke with Celena RN with Dr. Gaytan who advised they were supportive of patient going to skilled prior to starting any treatment. DEZ contacted Beau at [facility] to provide update and he advised he was just checking on the cardoso of one of patient's medications. SW left a message for Angeli at [facility]. SW followed up with patient to review discharge plan. Patient is still agreeable to SNF and stated that she did not have a preference between [facility] and [facility] and that she would be agreeable to either. Patient may speak wtih her daughter, Arely to determine preference if both can accept. DEZ contacted Arely and provided update. Arely is still agreeable to plan for SNF and is aware [facility] does not have availability and options will be between [facility] and [facility]. Discharge Plan: [facility] or [facility], pending acceptance
[2021-11-06 15:40] VITALS: BP 108/80; PULSE 119; TEMP 97.8
[2021-11-06 20:00] VITALS: BP 121/81; PULSE 80; TEMP 98.6
[2021-11-07 00:59] VITALS: BP 121/84; PULSE 95; TEMP 98.5
[2021-11-07 04:54] VITALS: BP 119/82; PULSE 92; TEMP 98.3
[2021-11-07 07:48] VITALS: BP 150/87; PULSE 90; TEMP 97.5
--- NOTE | 2021-11-07 08:30 | NUR ---
PT REQUESTING PAIN MEDICATION FROM PCT DURING MORNING VITALS. ENTERED PT ROOM, PT ASLEEP AT THIS TIME. WOKE PT, PT AOX4, REPORTS PAIN "IN MY LOW BACK", ROXICODONE PROVIDED WITH OTHER MORNING PILLS, LIDOCAINE PATCH APPLIED TO PT LOWER BACK. PT ON OXYGEN AT THIS TIME. WILL ATTEMPT TO GET PT UP TO BEDSIDE COMMODE, ASSESSMENT PERFORMED, BREAKFAST BROUGHT FOR PT, PT REPOSITIONED. NO OTHER NEEDS
--- NOTE | 2021-11-07 11:04 | NUR ---
CHANGING FENTANYL PATCH, PT REPORTS IT WAS ON L SHOULDER. SKIN ASSESSMENT PERFORMED ALL OVER BACK AND CHEST, NO FENTANYL PATCH FOUND. PT THEN REPORTS "I DON'T KNOW IF THEY EVER PUT IT ON ME". NO PATCH FOUND ON SHEETS. NEW FENTANYL PATCH APPLIED TO L SHOULDER. CHRISTIAN HAWTHORNE WITNESS TO NO PATCH ON PT AND APPLICATION OF NEW PATCH.
[2021-11-07 11:15] VITALS: BP 141/91; PULSE 87; TEMP 97.5
[2021-11-07 15:35] VITALS: BP 148/89; PULSE 84; TEMP 97.5
--- NOTE | 2021-11-07 17:32 | NUR ---
PT SLEEPING IN BED MOST OF SHIFT, COCCYX ULCER DRESSED, PAIN MEDS GIVEN PER PT REQUEST, NO OTHER NEEDS
[2021-11-07 21:29] VITALS: BP 116/76; PULSE 95; TEMP 97.8
--- NOTE | 2021-11-07 22:44 | NUR ---
REINFORCING TO PATIENT OT USE BSC AND CALL LIGHT USE. PATIENT HAVING INCONTINENCE IN BED PROVIDED STACEY CARE AND LINEN CHANGE. REINFORCED TO PATIENT CURRENT ULCER TO COCCYX NEEDS TO STAY DRY AND NEED TO CALL FOR BARN AND PROPERTY MANAGER FOR BOWEL AND BLADDER ELIMINATION. PATIENT WAS HAVING SOME GENERALZIED PAIN PROVIDED PRN PAIN MEDICATION. CONTINUES WITH OYXGENATION AT 4L VIA NC. TURNING AND REPOSITIONIGN PATIENT ENCOURAGED INFOREMD SHE HAS REDNESS NOTED TO R HIP AND NEEDS TO TRY AND REPOSITION TO LEFT SIDE WHILE AWAKE, WHICH PATIENT HAS STRENGTH TO DO INDEPENDENTLY. [facility]. CONTINUING ON IV ABX THERAPY.
[2021-11-08] VITALS (7 sets, daily range): BP systolic 112–151; BP diastolic 80–98; PULSE 81–94; TEMP 97.3–99
--- NOTE | 2021-11-08 05:19 | NUR ---
EDUCATING PATIENT ON USE OF CALL LIGHT SYSTEM AND USING BSC FOR BOWEL AND BLADDER ELIMINATION. PATIENT CONTINUES TO BE A CHECK AND CHANGE DUE TO INCONTINENCE. PATIENT AWARE THAT SHE HAD URINATED BUT DID NOT CALL TO BE CHANGED. AIDE ASSISTED WITH INCONTINENCE CARE. NO FURTHER PAIN NOTED THROUGHOUT SHIFT. PATIENT SLEPT COMFORTABLY ALL NIGHT.
--- NOTE | 2021-11-08 08:45 | NUR ---
PT PLEASANT, AWAKE EATING BREAKFAST WITH OXYGEN OFF, EDUCATED PT ON WEARING OXYGEN EVEN WHILE EATING. MEDICATIONS GIVEN, PT REPORTS SEVERE BACK PAIN, OXYCODONE GIVEN WITH MORNING PILLS. PT INCONTINENT OF URINE, ASKED PT IF SHE WAS AWARE OF WHEN SHE URINATES AND SHE STATES YES. ENCOURAGED HER TO CALL MAINTENANCE SUPERVISOR 2ND SHIFT LIGHT WHEN SHE NEEDS TO URINATE TO GET UP TO BEDSIDE COMMODE, PT AGREEABLE TO THIS.
--- NOTE | 2021-11-08 15:10 | NUR ---
PT PLEASANT, AOX4, REPORTS LESS PAIN AT THIS TIME, NO OTHER NEEDS
--- NOTE | 2021-11-08 17:28 | NUR ---
PT SLEEPING UPON ENTRY TO ROOM, WORKING WITH THERAPY, OVERALL UNEVENTFUL SHIFT
--- NOTE | 2021-11-08 18:25 | NUR ---
PT CALLED HANDYMAN LIGHT SAYING SHE HAD PULLED IV OUT. ICU NURSE STARTED INT TO EDWARD
--- NOTE | 2021-11-08 21:40 | NUR ---
PROVIDED PRN PAIN MEDICATINO DUE TO GENERALIZED PAIN. PATIENT IS AMBULATING MORE WITH WALKER FOR BOWEL AND BLADDER ELIMINATION, TOLERATING WELL. PATIENT OT D/C TOMORROW TO [facility]. CONTINUES WITH ABX THERAPY AND OXYGENATION AT 4L VIA NC. DRESSING INTACT CLEAN AND DRY TO COCCYX WILL CONTINUE TO MONITOR FOR ANY CHANGES.
[2021-11-09 03:58] VITALS: BP 134/88; PULSE 99; TEMP 98
[2021-11-09 06:34] LABS: EOS % 0.2 % (0.0-4.0); GRAN # 4.5 K/mm3 (1.4-6.5); GRAN % 84.2 % (42.2-75.2); HEMATOCRIT 40.6 % (37.0-47.0); HEMOGLOBIN 13.6 g/dl (12.5-16.0); LYMPH # 0.4 K/mm3 (1.2-3.4); LYMPH % 8.3 % (20.0-51.0); MEAN CELL VOLUME 103 fl (80.0-100.0); MEAN CORPUSCULAR HEMOGLOBIN 35 pg (27-31); MEAN CORPUSCULAR HGB CONC 34 g/dl (33.0-37.0); MEAN PLATELET VOLUME 10.1 fl (7.4-10.4); MONO # 0.3 K/mm3 (0.1-0.6); MONO % 6.4 % (1.7-9.3); PLATELET COUNT 183 K/mm3 (130-400); RED BLOOD COUNT 3.93 M/mm3 (4.10-5.30); REDCELL DISTRIBUTION WIDTH-CV 13.5 % (11.5-14.5)
[2021-11-09 06:49] LABS: CALCIUM 9.1 mg/dL (8.4-10.2); CREATININE, serum 0.78 mg/dL (0.57-1.11); POTASSIUM 4.5 mmol/L (3.5-4.5)
[2021-11-09 08:00] VITALS: BP 167/94; PULSE 97; TEMP 98.2
--- NOTE | 2021-11-09 10:30 | NUR ---
Received call from patient's daughter, Arely. She states that they decided to accept placement at [facility] for SNF. Asked if her mother would transfer there today. I told her now that we have a place accepted, SW will work with them to arrange transport and a time. Arely asked to be notified of that time. Message relayed to DEZ Wadsworth.
[2021-11-09] MEDS ORDERED: DOXYCYCLINE HY100 MG PO (11:22)
[2021-11-09] MEDS ORDERED: ELIQUIS 5MG PO (11:25)
[2021-11-09] MEDS ORDERED: PREDNISONE20 MG PO (11:32)
[2021-11-09] MEDS ORDERED: MEGACE ORAL40 MG/ML PO (11:33)
[2021-11-09] MEDS ORDERED: BLUE-EMU LIDOC1 EACH TP (11:33)
[2021-11-09 12:15] VITALS: BP 160/92; PULSE 93; TEMP 98.1
[2021-11-09] MEDS ORDERED: CORDARONE200 MG/TAB PO (12:19)
--- NOTE | 2021-11-09 13:00 | NUR ---
IV REMOVED, PT TELE REMOVED, PT GOING TO [facility]. PT BELONGINGS GATHERED, PT TAKEN IN WHEELCHAIR WITH OXYGEN TANK AND WITH PT PAPERWORK BY VIA RENZO EMPLOYEE, NO OTHER NEEDS
--- NOTE | 2021-11-09 14:00 | NUR ---
REPORT CALLED BY MELINA HAWTHORNE
--- NOTE | 2021-11-09 15:02 | NUR ---
Rand Butting Machine Operator faxed clinical updates to [facility]. Both can accept. DEZ followed up with patient and patient's daughter, Arely on preferred SNF placement. DEZ advised both [facility] and [facility] can accept as of this morning. Patient and daughter prefer [facility]. DEZ reviewed IM form with patient who verbalized understanding and provided signature. DEZ placed form in chart and gave copy to patient. DEZ contacted [facility] and transport was arranged for 1315. DEZ notified Arely of discharge time. DEZ faxed discharge orders and negative covid results to Beau at [facility]. Discharge Plan: [facility] SNF
[2021-11-09] MEDS ORDERED: FENTANYL 50MCG TD (17:39)
[2021-11-09] MEDS ORDERED: DAZIDOX10 MG PO (17:39)
== END 2021-11-09 14:00 | DRG 193 ==
LOC: COL.ER 22:50 → MEDICAL 11-04 01:07
PROVIDERS: Emergency Medicine; Internal Medicine; Physician Assistant; Student in an Organized Health Care Education/Training Program; ADMIT Student in an Organized Health Care Education/Training Program
DX: J18.9 Pneumonia, unspecified organism (principal); J96.21 Acute and chronic respiratory failure with hypoxia; E43 Unspecified severe protein-calorie malnutrition; N17.9 Acute kidney failure, unspecified; I48.92 Unspecified atrial flutter; I31.3 Pericardial effusion (noninflammatory); G72.81 Critical illness myopathy; Z68.1 Body mass index [BMI] 19.9 or less, adult; C34.90 Malignant neoplasm of unspecified part of unspecified bronchus or lung; C79.31 Secondary malignant neoplasm of brain; Z20.822 Contact with and (suspected) exposure to COVID-19; I10 Essential (primary) hypertension; E78.5 Hyperlipidemia, unspecified; G89.29 Other chronic pain; M54.9 Dorsalgia, unspecified; F41.9 Anxiety disorder, unspecified; F32.A Depression, unspecified; J43.9 Emphysema, unspecified; I48.91 Unspecified atrial fibrillation; Z96.652 Presence of left artificial knee joint; K59.00 Constipation, unspecified; E87.6 Hypokalemia; Z90.710 Acquired absence of both cervix and uterus; Z79.01 Long term (current) use of anticoagulants; Z92.21 Personal history of antineoplastic chemotherapy; Z92.3 Personal history of irradiation; Z99.81 Dependence on supplemental oxygen; Z79.82 Long term (current) use of aspirin; Z87.891 Personal history of nicotine dependence; Z23 Encounter for immunization
CPT/HCPCS: 99223-AI; 99232-AI; 99233-AI; 99239; A9284; A9575; J0696; J3480; J7030; J7512; Q9967

== ENCOUNTER → 2022-04-07 | Outpatient (CLI) | payer MEDICARE, MEDICAID ==
[~2022-04-07] MED LIST changes: +BLUE-EMU LIDOC1 EACH TP; +CORDARONE200 MG/TAB PO; +DOXYCYCLINE HY100 MG PO; +FENTANYL 50MCG TD; +MEGACE ORAL40 MG/ML PO
== END ==
LOC: COL.RAD 13:32
DX: C79.31 Secondary malignant neoplasm of brain (principal); C80.1 Malignant (primary) neoplasm, unspecified
CPT/HCPCS: A9575

== ENCOUNTER 2023-06-07 11:54 | Inpatient (IN) | payer MEDICARE ==
[2023-06-07] VITALS (58 sets, daily range): BP systolic 183–198; BP diastolic 109–129; PULSE 79–95; TEMP 99.3; O2SAT 87–100
[~2023-06-07] VITALS: Ht 170.2 cm; Wt 47.0 kg
[~2023-06-07 11:54] MED LIST changes: +AMOXICILLIN 8751 TAB PO; -SEROQUEL 1100 MG/TAB PO; +SEROQUEL 200MG200 MG PO; +ZITHROMAX Z PA250 MG PO; +ZOFRAN ODT4 MG PO
[2023-06-07 18:33] LABS: INR 1.3 (0.8-3.0); PROTHROMBIN TIME 14.1 SECONDS (9.7-12.8)
[2023-06-08] VITALS (1135 sets, daily range): BP systolic 134–197; BP diastolic 90–123; PULSE 82–124; TEMP 98.2–100.3; O2SAT 70–100
[2023-06-08 09:38] LABS: HEMOGLOBIN 16.5 g/dl (12.5-16.0); MEAN CELL VOLUME 99 fl (80.0-100.0); MEAN CORPUSCULAR HEMOGLOBIN 35 pg (27-31); MEAN CORPUSCULAR HGB CONC 35 g/dl (33.0-37.0); MEAN PLATELET VOLUME 10.3 fl (7.4-10.4); PLATELET COUNT 181 K/mm3 (130-400); RED BLOOD COUNT 4.75 M/mm3 (4.10-5.30)
[2023-06-08 09:56] LABS: ALBUMIN 3.6 gm/dL (3.4-4.8); BILIRUBIN,TOTAL 1.3 mg/dL (0.2-1.2); CALCIUM 10.3 mg/dL (8.4-10.2); CREATININE, serum 0.8 mg/dL (0.57-1.11); TOTAL PROTEIN 7.2 gm/dL (6.2-8.1)
[2023-06-08 09:59] LABS: POTASSIUM 2.5 mmol/L (3.5-4.5)
[2023-06-08 10:49] LABS: LYMPHOCYTE 3 % (20.0-51.0); NEUTROPHILS 87 % (42.0-75.2); PLATELET ESTIMATE NORMAL (NORMAL)
[2023-06-08 10:50] LABS: BAND 4 % (0-10)
[2023-06-08 12:51] LABS: TRICYCLIC ANTIDEPRESS URINE POSITIVE (NEGATIVE)
[2023-06-08] MEDS ORDERED: FENTANYL 75MCG TD (13:44)
[2023-06-08] MEDS ORDERED: DAZIDOX10 MG PO (13:45)
[2023-06-08] MEDS ORDERED: RT ADVAIR 228 DISKUS IH (13:53)
[2023-06-09] VITALS (1006 sets, daily range): BP systolic 118–182; BP diastolic 87–111; PULSE 78–117; TEMP 97.1–98.4; O2SAT 80–100
[2023-06-09 07:07] LABS: HEMATOCRIT 44.4 % (37.0-47.0); HEMOGLOBIN 15.8 g/dl (12.5-16.0); MEAN CELL VOLUME 98 fl (80.0-100.0); MEAN CORPUSCULAR HEMOGLOBIN 35 pg (27-31); MEAN CORPUSCULAR HGB CONC 36 g/dl (33.0-37.0); PLATELET COUNT 143 K/mm3 (130-400); RED BLOOD COUNT 4.52 M/mm3 (4.10-5.30); REDCELL DISTRIBUTION WIDTH-CV 13.1 % (11.5-14.5)
[2023-06-09 07:18] LABS: ALBUMIN 3.2 gm/dL (3.4-4.8); BILIRUBIN,TOTAL 1.5 mg/dL (0.2-1.2); CALCIUM 9.7 mg/dL (8.4-10.2); CREATININE, serum 0.8 mg/dL (0.57-1.11); POTASSIUM 3.1 mmol/L (3.5-4.5); TOTAL PROTEIN 6.4 gm/dL (6.2-8.1)
[2023-06-09 07:24] LABS: BAND 14 % (0-10); LYMPHOCYTE 4 % (20.0-51.0); NEUTROPHILS 79 % (42.0-75.2); PLATELET ESTIMATE NORMAL (NORMAL)
[2023-06-09 19:46] LABS: ARTERIAL BLD GAS O2 SATURATION 96.5 % (92-100); ARTERIAL BLD GAS TCO2 CT 20.7; ARTERIAL BLOOD GAS BASE EXCESS 0.2 (-2-2); ARTERIAL BLOOD GAS PCO2 22.9 mmHg (35-45); ARTERIAL BLOOD GAS PO2 77.7 mmHg (80-100); ARTERIAL BLOOD GAS pH 7.56 (7.35-7.45)
[2023-06-10] VITALS (1196 sets, daily range): BP systolic 138–162; BP diastolic 91–117; PULSE 106–121; TEMP 97.4–98.2; O2SAT 87–100
[2023-06-10 05:44] LABS: HEMATOCRIT 45.3 % (37.0-47.0); MEAN CELL VOLUME 99 fl (80.0-100.0); MEAN CORPUSCULAR HEMOGLOBIN 35 pg (27-31); MEAN CORPUSCULAR HGB CONC 35 g/dl (33.0-37.0); MEAN PLATELET VOLUME 10.7 fl (7.4-10.4); PLATELET COUNT 149 K/mm3 (130-400); REDCELL DISTRIBUTION WIDTH-CV 13.2 % (11.5-14.5)
[2023-06-10 06:19] LABS: CALCIUM 10.5 mg/dL (8.4-10.2); CREATININE, serum 0.8 mg/dL (0.57-1.11); POTASSIUM 3.5 mmol/L (3.5-4.5)
[2023-06-10 06:48] LABS: BAND 11 % (0-10); LYMPHOCYTE 3 % (20.0-51.0); NEUTROPHILS 83 % (42.0-75.2)
[2023-06-10 06:49] LABS: PLATELET ESTIMATE NORMAL (NORMAL)
[2023-06-11] VITALS (787 sets, daily range): BP systolic 125–170; BP diastolic 80–105; PULSE 74–108; TEMP 97–98.4; O2SAT 72–100
[2023-06-11 05:49] LABS: CALCIUM 9.8 mg/dL (8.4-10.2); CREATININE, serum 0.75 mg/dL (0.57-1.11); POTASSIUM 4.5 mmol/L (3.5-4.5)
[2023-06-12] VITALS (10 sets, daily range): BP systolic 127–163; BP diastolic 71–93; PULSE 73–100; TEMP 97.1–98.6
[2023-06-12 14:42] LABS: CREATININE, serum 0.71 mg/dL (0.57-1.11); POTASSIUM 3.4 mmol/L (3.5-4.5)
[2023-06-13] VITALS (13 sets, daily range): BP systolic 128–189; BP diastolic 65–92; PULSE 80–94; TEMP 97.1–98.5
[2023-06-13 07:18] LABS: HEMOGLOBIN 11.8 g/dl (12.5-16.0); MEAN CELL VOLUME 104 fl (80.0-100.0); MEAN CORPUSCULAR HEMOGLOBIN 35 pg (27-31); MEAN CORPUSCULAR HGB CONC 33 g/dl (33.0-37.0); MEAN PLATELET VOLUME 11.7 fl (7.4-10.4); PLATELET COUNT 86 K/mm3 (130-400); RED BLOOD COUNT 3.42 M/mm3 (4.10-5.30); REDCELL DISTRIBUTION WIDTH-CV 13.2 % (11.5-14.5)
[2023-06-13 07:49] LABS: HEMATOCRIT 35.4 % (37.0-47.0)
[2023-06-13 07:51] LABS: ALBUMIN 2.5 gm/dL (3.4-4.8); CALCIUM 8.8 mg/dL (8.4-10.2); CREATININE, serum 0.63 mg/dL (0.57-1.11); MAGNESIUM 1.5 mg/dL (1.6-2.6); PHOSPHOROUS 2.6 mg/dL (2.3-4.7); POTASSIUM 3.7 mmol/L (3.5-4.5)
[2023-06-13 07:53] LABS: BAND 3 % (0-10); EOSINOPHIL 6 % (0-4); LYMPHOCYTE 15 % (20.0-51.0); NEUTROPHILS 68 % (42.0-75.2); PLATELET ESTIMATE DECREASED (NORMAL)
[2023-06-14] VITALS (12 sets, daily range): BP systolic 125–169; BP diastolic 81–106; PULSE 87–100; TEMP 97.5–98.1
[2023-06-14 09:30] LABS: ALBUMIN 2.7 gm/dL (3.4-4.8); CALCIUM 8.9 mg/dL (8.4-10.2); CREATININE, serum 0.69 mg/dL (0.57-1.11); MAGNESIUM 1.6 mg/dL (1.6-2.6); PHOSPHOROUS 2.5 mg/dL (2.3-4.7); POTASSIUM 3.7 mmol/L (3.5-4.5)
[2023-06-14 10:04] LABS: BASO % 0.2 % (0.0-2.0); EOS # 0.2 K/mm3 (0.0-0.7); EOS % 2.8 % (0.0-4.0); GRAN # 6.4 K/mm3 (1.4-6.5); GRAN % 77.2 % (42.2-75.2); HEMOGLOBIN 12.7 g/dl (12.5-16.0); LYMPH # 0.9 K/mm3 (1.2-3.4); LYMPH % 10.3 % (20.0-51.0); MEAN CELL VOLUME 100 fl (80.0-100.0); MEAN CORPUSCULAR HEMOGLOBIN 35 pg (27-31); MEAN CORPUSCULAR HGB CONC 35 g/dl (33.0-37.0); MEAN PLATELET VOLUME 11.1 fl (7.4-10.4); MONO # 0.7 K/mm3 (0.1-0.6); MONO % 8.4 % (1.7-9.3); PLATELET COUNT 135 K/mm3 (130-400); RED BLOOD COUNT 3.62 M/mm3 (4.10-5.30); REDCELL DISTRIBUTION WIDTH-CV 12.8 % (11.5-14.5)
[2023-06-14 10:10] LABS: HEMATOCRIT 36.2 % (37.0-47.0)
[2023-06-15] VITALS (9 sets, daily range): BP systolic 127–159; BP diastolic 70–92; PULSE 73–99; TEMP 97.4–98
[2023-06-15 06:41] LABS: MEAN CELL VOLUME 99 fl (80.0-100.0); MEAN CORPUSCULAR HEMOGLOBIN 35 pg (27-31); MEAN CORPUSCULAR HGB CONC 35 g/dl (33.0-37.0); MEAN PLATELET VOLUME 10.4 fl (7.4-10.4); PLATELET COUNT 157 K/mm3 (130-400); RED BLOOD COUNT 3.41 M/mm3 (4.10-5.30); REDCELL DISTRIBUTION WIDTH-CV 12.8 % (11.5-14.5)
[2023-06-15 06:43] LABS: HEMATOCRIT 33.9 % (37.0-47.0)
[2023-06-15 06:56] LABS: ALBUMIN 2.7 gm/dL (3.4-4.8); CALCIUM 9.3 mg/dL (8.4-10.2); CREATININE, serum 0.68 mg/dL (0.57-1.11); MAGNESIUM 1.8 mg/dL (1.6-2.6); POTASSIUM 3.9 mmol/L (3.5-4.5)
[2023-06-15 07:14] LABS: BAND 1 % (0-10); EOSINOPHIL 1 % (0-4); LYMPHOCYTE 13 % (20.0-51.0); NEUTROPHILS 80 % (42.0-75.2); PLATELET ESTIMATE NORMAL (NORMAL)
[2023-06-16 00:55] VITALS: BP_SYST 150
[2023-06-16 03:37] VITALS: BP 147/88; PULSE 82; TEMP 98
[2023-06-16 04:29] VITALS: BP_SYST 147
[2023-06-16 07:34] LABS: BASO % 0.2 % (0.0-2.0); EOS # 0.3 K/mm3 (0.0-0.7); EOS % 3.7 % (0.0-4.0); GRAN # 6.2 K/mm3 (1.4-6.5); GRAN % 76.1 % (42.2-75.2); HEMATOCRIT 38.1 % (37.0-47.0); HEMOGLOBIN 12.7 g/dl (12.5-16.0); LYMPH # 0.9 K/mm3 (1.2-3.4); LYMPH % 11.3 % (20.0-51.0); MEAN CELL VOLUME 102 fl (80.0-100.0); MEAN CORPUSCULAR HEMOGLOBIN 34 pg (27-31); MEAN CORPUSCULAR HGB CONC 33 g/dl (33.0-37.0); MONO # 0.7 K/mm3 (0.1-0.6); PLATELET COUNT 208 K/mm3 (130-400); RED BLOOD COUNT 3.73 M/mm3 (4.10-5.30); REDCELL DISTRIBUTION WIDTH-CV 12.7 % (11.5-14.5)
[2023-06-16 07:55] LABS: CALCIUM 9.6 mg/dL (8.4-10.2); CREATININE, serum 0.73 mg/dL (0.57-1.11); PHOSPHOROUS 3.4 mg/dL (2.3-4.7)
[2023-06-16 08:20] VITALS: BP 149/91; PULSE 77; TEMP 97.8
[2023-06-16] MEDS ORDERED: FENTANYL 25 MCG TD (10:52)
[2023-06-16] MEDS ORDERED: SEROQUEL 2525 MG/TAB PO (10:53)
[2023-06-16] MEDS ORDERED: TRANSDERM-0.5 MG/21 TD (10:54)
[2023-06-16] MEDS ORDERED: NORCO 325 MG-51 TAB PO (10:59)
== END 2023-06-16 12:24 | disposition home health service (06) | DRG 871 ==
LOC: COL.ER 11:54 → MEDICAL 16:50 → ICU 16:50 → IMCU 16:50 → ICU 06-09 18:35 → MEDICAL 06-11 14:30
PROVIDERS: Internal Medicine; Nurse Practitioner Family; ADMIT Internal Medicine
PROC: 02HV33Z Insertion of Infusion Device into Superior Vena Cava, Percutaneous Approach (ICD-10-PCS; principal; 2023-06-08)
DX: A41.9 Sepsis, unspecified organism (principal); E43 Unspecified severe protein-calorie malnutrition; G93.41 Metabolic encephalopathy; J69.0 Pneumonitis due to inhalation of food and vomit; E87.0 Hyperosmolality and hypernatremia; J96.11 Chronic respiratory failure with hypoxia; Z68.1 Body mass index [BMI] 19.9 or less, adult; Z66 Do not resuscitate; I16.0 Hypertensive urgency; I48.91 Unspecified atrial fibrillation; F32.A Depression, unspecified; E78.5 Hyperlipidemia, unspecified; M54.9 Dorsalgia, unspecified; G89.4 Chronic pain syndrome; F41.9 Anxiety disorder, unspecified; J44.9 Chronic obstructive pulmonary disease, unspecified; F17.210 Nicotine dependence, cigarettes, uncomplicated; I10 Essential (primary) hypertension; E87.6 Hypokalemia; D75.1 Secondary polycythemia; G31.84 Mild cognitive impairment of uncertain or unknown etiology; R29.6 Repeated falls; E83.52 Hypercalcemia; Z85.118 Personal history of other malignant neoplasm of bronchus and lung; Z86.73 Personal history of transient ischemic attack (TIA), and cerebral infarction without residual deficits; Z85.841 Personal history of malignant neoplasm of brain; Z79.82 Long term (current) use of aspirin; Z79.899 Other long term (current) drug therapy; Z90.710 Acquired absence of both cervix and uterus; Z99.81 Dependence on supplemental oxygen; Z79.01 Long term (current) use of anticoagulants; Z79.891 Long term (current) use of opiate analgesic
CPT/HCPCS: A9575; C1751; C1892; J0360; J0692; J0696; J1885; J1920; J2060; J2270; J2404; J2405; J3370; J3480; J7030; J7050; J7120; Q9967

== ENCOUNTER 2023-06-30 14:43 | Emergency (ER) | payer MEDICARE ==
[~2023-06-30] VITALS: Ht 165.1 cm; Wt 49.1 kg
[2023-06-30 14:43] VITALS: TEMP 98.1
[~2023-06-30 14:43] MED LIST changes: +FENTANYL 25 MCG TD; +FENTANYL 75MCG TD; +NORCO 325 MG-51 TAB PO; +RT ADVAIR 228 DISKUS IH; +SEROQUEL 2525 MG/TAB PO; +TRANSDERM-0.5 MG/21 TD
[2023-06-30] MEDS ORDERED: fentaNYL 50 MCG/ML 2 ML VIAL IV ONE (15:15)
[2023-06-30] MEDS ORDERED: NORCO 325 MG-51 TAB PO (16:09)
[2023-06-30 16:31] VITALS: BP 139/89; PULSE 97
== END 2023-06-30 17:02 | disposition home or self-care (01) ==
LOC: COL.ER 14:43
DX: S09.90XA Unspecified injury of head, initial encounter (principal); S81.012A Laceration without foreign body, left knee, initial encounter; S21.119A Laceration without foreign body of unspecified front wall of thorax without penetration into thoracic cavity, initial encounter; S81.011A Laceration without foreign body, right knee, initial encounter; S00.83XA Contusion of other part of head, initial encounter; S50.12XA Contusion of left forearm, initial encounter; S50.11XA Contusion of right forearm, initial encounter; F17.210 Nicotine dependence, cigarettes, uncomplicated; Z96.653 Presence of artificial knee joint, bilateral; W01.10XA Fall on same level from slipping, tripping and stumbling with subsequent striking against unspecified object, initial encounter; Y93.02 Activity, running
CPT/HCPCS: J3010

== ENCOUNTER 2024-02-05 09:57 | Emergency (ER) | payer MEDICARE ==
[~2024-02-05] VITALS: Ht 165.1 cm; Wt 52.3 kg
[~2024-02-05 09:57] MED LIST changes: +K-TAB10 PO
[2024-02-05 10:08] VITALS: TEMP 98.3
[2024-02-05] MEDS ORDERED: Loperamide 2 MG CAP PO ONE (12:15)
[2024-02-05] MEDS ORDERED: Cephalexin 500 MG CAP PO ONE (12:15)
[2024-02-05 12:48] LABS: BASO % 0.5 % (0.0-2.0); EOS # 0.6 K/mm3 (0.0-0.7); EOS % 8.8 % (0.0-4.0); GRAN # 3.6 K/mm3 (1.4-6.5); HEMATOCRIT 44.6 % (37.0-47.0); LYMPH % 15.9 % (20.0-51.0); MEAN CELL VOLUME 100 fl (80.0-100.0); MEAN CORPUSCULAR HEMOGLOBIN 34 pg (27-31); MEAN CORPUSCULAR HGB CONC 34 g/dl (33.0-37.0); MEAN PLATELET VOLUME 9.7 fl (7.4-10.4); MONO % 15.5 % (1.7-9.3); PLATELET COUNT 213 K/mm3 (130-400); RED BLOOD COUNT 4.45 M/mm3 (4.10-5.30); REDCELL DISTRIBUTION WIDTH-CV 13.3 % (11.5-14.5)
[2024-02-05 13:04] LABS: ALBUMIN 3.7 g/dL (3.4-4.8); BILIRUBIN,TOTAL 0.5 mg/dL (0.2-1.2); CALCIUM 9.4 mg/dL (8.4-10.2); CREATININE, serum 0.87 mg/dL (0.57-1.11); POTASSIUM 3.3 mEq/L (3.5-4.5); TOTAL PROTEIN 6.6 g/dl (6.2-8.1)
[2024-02-05] MEDS ORDERED: CEPHALEXIN500 M1 PO (13:16)
[2024-02-05] MEDS ORDERED: NORCO 325 MG-51 TAB PO (13:16)
[2024-02-05 13:28] VITALS: BP 110/85; PULSE 88
== END 2024-02-05 13:29 | disposition home or self-care (01) ==
LOC: COL.ER 09:57
PROVIDERS: Personal Emergency Response Attendant
DX: M54.50 Low back pain, unspecified (principal); L98.499 Non-pressure chronic ulcer of skin of other sites with unspecified severity

== ENCOUNTER → 2024-02-27 | Outpatient (CLI) | payer MEDICARE, MEDICAID ==
[~2024-02-27] MED LIST changes: +CEPHALEXIN500 M1 PO
== END ==
LOC: MHCPAIN 13:40
DX: M54.16 Radiculopathy, lumbar region (principal); M43.17 Spondylolisthesis, lumbosacral region; M47.896 Other spondylosis, lumbar region; M48.061 Spinal stenosis, lumbar region without neurogenic claudication; I10 Essential (primary) hypertension; E78.5 Hyperlipidemia, unspecified; J44.9 Chronic obstructive pulmonary disease, unspecified
CPT/HCPCS: G0463

== ENCOUNTER → 2024-03-19 | Outpatient (CLI) | payer MEDICARE, MEDICAID ==
[~2024-03-19] MED LIST changes: +Iohexol 300 - 10 ML VIAL ONE; +Lidocaine PF 2% (20 MG/ML) 2 ML VIAL ONE
== END ==
LOC: MHCPAIN 10:18
DX: M54.17 Radiculopathy, lumbosacral region (principal); M54.16 Radiculopathy, lumbar region
CPT/HCPCS: J1100; Q9967